=== PATIENT | male | born 1985 | race African-American/Black ===

== ENCOUNTER 2021-02-15 16:41 | Emergency (ER) | payer MEDICAID ==
[~2021-02-15] VITALS: Ht 172.7 cm; Wt 147.4 kg
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
[2021-02-15 17:01] VITALS: BP 133/84
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
[2021-02-15] MEDS ORDERED: Ketorolac 60mg Inj IM ONE (17:45)
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
[2021-02-15] MEDS ORDERED: IBUPROFEN800 MG ORAL (18:09)
[2021-02-15 18:19] VITALS: BP 132/80
--- NOTE | 2021-02-15 18:21 | NUR ---
ER DISCHARGE NOTE: Patient is cleared to be discharged per ERMD, pt is aox4, on room air, with stable vital signs. pt was given dc and prescription instructions, pt was able to verbalize understanding, pt id band removed without complications. pt is able to ambulate with steady gait. pt took all belongings.
== END 2021-02-15 18:21 | disposition home or self-care (01) ==
LOC: EMR 16:57
DX: S90.02XA Contusion of left ankle, initial encounter (principal); S90.01XA Contusion of right ankle, initial encounter; S93.409A Sprain of unspecified ligament of unspecified ankle, initial encounter; W20.8XXA Other cause of strike by thrown, projected or falling object, initial encounter; Y92.9 Unspecified place or not applicable
CPT/HCPCS: 73610; 73630; 96372; Z7502; 99284